=== PATIENT | male | born 1970 | race African-American/Black ===

== ENCOUNTER 2017-05-07 09:37 | Emergency (ER) | payer MEDICAID, OTHER ==
[~2017-05-07] VITALS: Ht 180.3 cm; Wt 108.0 kg
[2017-05-07] MEDS ORDERED: SODIUM CHLORIDE 0.9% 1,000 ML IV ONE (10:00)
[2017-05-07] MEDS ORDERED: KETOROLAC 30MG/ML VIAL IV STA (10:00)
[2017-05-07 10:36] LABS: BASOPHILS % 0.7 % (0.0-2.0); EOSINOPHILS % 2.4 % (0.0-5.0); HEMOGLOBIN. 14.9 g/dL (14.0-18.0); LYMPHOCYTES % 26.8 % (20.0-50.0); MEAN CORPUSCULAR HEMOGLOBIN 28.9 pg (28.0-32.0); MEAN CORPUSCULAR VOLUME 87.5 fL (80.0-94.0); MEAN PLATELET VOLUME 9.6 fl (7.4-10.4); MONOCYTES % 9.1 % (2.0-8.0); PLATELET 254 x1000/uL (130-400); RED BLOOD CELL COUNT 5.15 mill/uL (4.7-6.1)
[2017-05-07 10:45] LABS: INR 1.2; PARTIAL THROMBOPLASTIN TIME 27.1 sec (24.0-34.0); PROTHROMBIN TIME 12.1 sec
[2017-05-07 10:47] LABS: CARBON DIOXIDE 26 mEq/L (21-32); CHLORIDE 109 mEq/L (98-107)
[2017-05-07 10:55] LABS: TROPONIN I < 0.02 ng/mL (0.00-0.04)
[2017-05-07 11:24] LABS: *AMPHETAMINES SCREEN URINE NEGATIVE (NEGATIVE); *BARBITURATES SCREEN URINE NEGATIVE (NEGATIVE); *BENZODIAZEPINES SCREEN URINE NEGATIVE (NEGATIVE); *COCAINE SCREEN URINE PRESUMTIVE POSITIVE (NEGATIVE); CANNABINOID URINE SCREEN PRESUMTIVE POSITIVE (NEGATIVE); METHADONE URINE SCREEN NEGATIVE (NEGATIVE); OPIATES URINE SCREEN NEGATIVE (NEGATIVE); PHENCYCLIDINE URINE SCREEN NEGATIVE (NEGATIVE)
[2017-05-07 12:45] VITALS: BP 120/77
[2017-05-07] MEDS ORDERED: DIAZEPAM 5 MG TABLET PO ONE (13:15)
== END 2017-05-07 14:06 | disposition home or self-care (01) ==
LOC: ER 10:56
DX: M50.121 Cervical disc disorder at C4-C5 level with radiculopathy (principal); M50.122 Cervical disc disorder at C5-C6 level with radiculopathy; M50.123 Cervical disc disorder at C6-C7 level with radiculopathy; M47.22 Other spondylosis with radiculopathy, cervical region; M48.02 Spinal stenosis, cervical region; M54.9 Dorsalgia, unspecified; R07.9 Chest pain, unspecified; F14.10 Cocaine abuse, uncomplicated; F12.10 Cannabis abuse, uncomplicated; F17.200 Nicotine dependence, unspecified, uncomplicated; M79.601 Pain in right arm
CPT/HCPCS: 36415; 71010; 72141; 80048; 80305; 84484; 85025; 85610; 85730; 93005; 96361; 96374; 99285; J1885; J7030; Z7610

== ENCOUNTER 2020-09-03 13:38 | Emergency (ER) | payer MEDICAID, OTHER ==
[~2020-09-03] VITALS: Ht 180.3 cm; Wt 95.0 kg
[2020-09-03] MEDS ORDERED: ACETAMINOPHEN WITH CODEINE 300/30MG TABLET PO ONE (14:15)
[2020-09-03] MEDS ORDERED: AMOXICILLIN 500 MG CAPSULE PO ONE (14:15)
[2020-09-03] MEDS ORDERED: AMOXICILLIN 250MG CAPSULE PO ONE (14:30)
[2020-09-03 14:44] VITALS: BP 126/86
== END 2020-09-03 14:47 | disposition home or self-care (01) ==
LOC: ER 13:38
DX: K08.89 Other specified disorders of teeth and supporting structures (principal); K02.9 Dental caries, unspecified; K04.7 Periapical abscess without sinus
CPT/HCPCS: 99283

== ENCOUNTER 2021-12-04 13:05 | Emergency (ER) | payer MEDICAID ==
[~2021-12-04] VITALS: Ht 180.3 cm; Wt 95.0 kg
[2021-12-04 13:15] VITALS: BP 108/69
[2021-12-04] MEDS ORDERED: AMOX-424 MT (13:34)
[2021-12-04] MEDS ORDERED: HYDR-4001 MT (13:34)
== END 2021-12-04 14:00 | disposition home or self-care (01) ==
LOC: ER 13:05
DX: K04.7 Periapical abscess without sinus (principal)
CPT/HCPCS: 99283

== ENCOUNTER 2022-02-24 12:58 | Emergency (ER) | payer MEDICAID ==
[~2022-02-24] VITALS: Ht 170.2 cm; Wt 81.0 kg
[~2022-02-24 12:58] MED LIST: HYDR-4001 MT; OMEP40CA20 MT; SUCR1ORA15 PO
[2022-02-24 15:15] VITALS: BP 113/68
== END 2022-02-24 15:43 | disposition home or self-care (01) ==
LOC: ER 13:27
DX: F15.29 Other stimulant dependence with unspecified stimulant-induced disorder (principal)
CPT/HCPCS: 99283; Z7610

== ENCOUNTER 2024-12-14 12:27 | Emergency (ER) | payer MEDICAID, OTHER ==
[~2024-12-14] VITALS: Ht 177.8 cm; Wt 90.7 kg
[2024-12-14 12:31] VITALS: BP 140/83; TEMP 36.6; O2SAT 98
[2024-12-14 12:35] VITALS: PULSE 78; RESP 16; O2SAT 99
[2024-12-14 13:24] LABS: BASOPHILS % 0.9 % (0.0-2.0); EOSINOPHILS % 1.9 % (0.0-5.0); HEMATOCRIT. 44.9 % (42.0-52.0); HEMOGLOBIN. 14.4 g/dL (14.0-18.0); LYMPHOCYTES % 32.1 % (20.0-50.0); MEAN CORPUSCULAR HEMOGLOBIN 28.1 pg (28.0-32.0); MEAN CORPUSCULAR VOLUME 87.6 fL (80.0-94.0); MEAN PLATELET VOLUME 9.2 fl (7.4-10.4); MONOCYTES % 8.7 % (2.0-8.0); NEUTROPHILS % 56.4 % (40.0-76.0); PLATELET 256 x1000/uL (130-400); RED BLOOD CELL COUNT 5.13 mill/uL (4.7-6.1); RED CELL DISTRIBUTION WIDTH 14.9 % (11.6-14.6); WHITE BLOOD COUNT 7.3 x1000/uL (4.5-11.0)
[2024-12-14 13:31] LABS: CHLORIDE 106 mEq/L (98-107); POTASSIUM 3.8 mEq/L (3.5-5.1); SODIUM 141 mEq/L (136-145)
[2024-12-14 13:32] LABS: CALCIUM 8.8 mg/dL (8.7-10.4); CARBON DIOXIDE 29 mEq/L (21-32)
[2024-12-14 13:37] LABS: CREATININE 1.1 mg/dL (0.6-1.3); GLUCOSE 90 mg/dL (70-105); UREA NITROGEN BLOOD 12 mg/dL (9-23)
[2024-12-14 14:15] LABS: TROPONIN I HIGH SENSITIVITY < 4 ng/L (3.0-53)
== END 2024-12-14 14:28 | disposition home or self-care (01) ==
LOC: ER 12:35
DX: R07.89 Other chest pain (principal); F15.10 Other stimulant abuse, uncomplicated
CPT/HCPCS: 36415; 71045; 80048; 84484; 85025; 93005; 99285

== ENCOUNTER 2025-01-14 17:11 | Emergency (ER) | payer MEDICAID, OTHER ==
[~2025-01-14] VITALS: Ht 180.3 cm; Wt 118.0 kg
[2025-01-14 17:35] VITALS: O2SAT 99
[2025-01-14 17:42] VITALS: TEMP 36.8; O2SAT 99
[2025-01-14 20:18] VITALS: BP 127/85; PULSE 87; RESP 18
[2025-01-14] MEDS: IBUPROFEN 800MG TABLET PO ONE (20:18)
[2025-01-14] MEDS: LIDOCAINE HCL 1% 20ML VIAL INFIL ONE (21:31)
[2025-01-14] MEDS ORDERED: AMOX1TAB16 MT (23:45)
[2025-01-14] MEDS ORDERED: NAPR-681 MT (23:45)
[2025-01-14] MEDS ORDERED: FAMO-135 MT (23:45)
== END 2025-01-15 00:18 | disposition home or self-care (01) ==
LOC: ER 17:11
DX: L03.031 Cellulitis of right toe (principal); L02.611 Cutaneous abscess of right foot; F15.90 Other stimulant use, unspecified, uncomplicated; M19.071 Primary osteoarthritis, right ankle and foot; Z79.899 Other long term (current) drug therapy
CPT/HCPCS: 99284; 10060; 84550; 36415; 73660; J3490

== ENCOUNTER 2025-01-17 21:11 | Emergency (ER) | payer BC, OTHER ==
[~2025-01-17] VITALS: Ht 172.7 cm; Wt 116.0 kg
[~2025-01-17 21:11] MED LIST changes: +AMOX1TAB16 MT; +FAMO-135 MT; +NAPR-681 MT
[2025-01-17 21:13] VITALS: PULSE 77; RESP 14; O2SAT 99
[2025-01-17 21:31] VITALS: BP 120/81; TEMP 36.6; O2SAT 98
== END 2025-01-18 00:19 | disposition home or self-care (01) ==
LOC: ER 21:11
DX: S90.411D Abrasion, right great toe, subsequent encounter (principal); F15.90 Other stimulant use, unspecified, uncomplicated; Z79.899 Other long term (current) drug therapy; Z79.1 Long term (current) use of non-steroidal anti-inflammatories (NSAID); X58.XXXD Exposure to other specified factors, subsequent encounter
CPT/HCPCS: 99281